=== PATIENT | female | born 1940 | race Caucasian/White ===

== ENCOUNTER → 2023-09-19 15:14 | Outpatient (REF) | payer MEDICARE, OTHER, SELFPAY ==
[2023-09-19 16:28] LABS: Blood Urea Nitrogen 48 mg/dl (7-17); Calcium 9.4 mg/dl (8.4-10.2); Carbon Dioxide 35 mmol/L (22-30); Chloride 96 mmol/L (98-107); Glucose 156 mg/dl (70-99); Magnesium 2.1 mg/dl (1.6-2.3); Potassium 4.6 mmol/L (3.5-5.1); Sodium 139 mmol/L (135-145)
[2023-09-19 16:37] LABS: NT-proBNP 279 pg/ml
== END ==
LOC: RCS 15:14
PROVIDERS: ATTENDING PHYSICIAN Internal Medicine Cardiovascular Disease; FAMILY PHYSICIAN Family Medicine
DX: R06.02 Shortness of breath (principal); I10 Essential (primary) hypertension; I50.30 Unspecified diastolic (congestive) heart failure; I35.0 Nonrheumatic aortic (valve) stenosis; I27.20 Pulmonary hypertension, unspecified
CPT/HCPCS: 36415; 80048; 83735; 83880

== ENCOUNTER → 2023-10-16 16:19 | Outpatient (REF) | payer MEDICARE, OTHER, SELFPAY ==
[2023-10-16 17:58] LABS: Blood Urea Nitrogen 59 mg/dl (7-17); Carbon Dioxide 40 mmol/L (22-30); Chloride 89 mmol/L (98-107); Glucose 174 mg/dl (70-99); Potassium 4.1 mmol/L (3.5-5.1); Sodium 136 mmol/L (135-145); eGFR 26.04
== END ==
LOC: REG 16:19
PROVIDERS: ATTENDING PHYSICIAN Internal Medicine Cardiovascular Disease; FAMILY PHYSICIAN Family Medicine
DX: I50.30 Unspecified diastolic (congestive) heart failure (principal)
CPT/HCPCS: 36415; 80048

== ENCOUNTER → 2024-01-27 14:49 | Outpatient (REF) | payer MEDICARE, OTHER, SELFPAY ==
[2024-01-27 17:20] LABS: NT-proBNP 243 pg/ml
[2024-01-27 17:22] LABS: Blood Urea Nitrogen 60 mg/dl (7-17); Calcium 8.8 mg/dl (8.4-10.2); Chloride 87 mmol/L (98-107); Glucose 281 mg/dl (70-99); Magnesium 1.8 mg/dl (1.6-2.3); Potassium 4.7 mmol/L (3.5-5.1); Sodium 140 mmol/L (135-145); eGFR 25.88
[2024-01-27 17:32] LABS: Carbon Dioxide 38 mmol/L (22-30)
== END ==
LOC: REG 14:49
PROVIDERS: ATTENDING PHYSICIAN Internal Medicine Cardiovascular Disease; FAMILY PHYSICIAN Family Medicine
DX: R06.02 Shortness of breath (principal); I10 Essential (primary) hypertension; I50.30 Unspecified diastolic (congestive) heart failure
CPT/HCPCS: 36415; 80048; 83735; 83880